=== PATIENT | male | born 1960 | race American Indian/Alaskan Native ===

== ENCOUNTER 2019-04-04 12:53 | Emergency (ER) | payer SELFPAY ==
[2019-04-04] MEDS ORDERED: IBUPROFEN 600 MG TAB PO ONE ×2 (14:49→14:51)
--- NOTE | 2019-04-04 14:49 | Event Note ---
ED Screening Note Date of service: 04/04/19 Time: 14:44 ED Screening Note: This is a 58 y.o. M. that presents to the ER with sore throat fever, chills, and cough for 1 week. Denies taking medication. States symptoms are worse. This initial assessment/diagnostic orders/clinical plan/treatment(s) is/are subject to change based on patients health status, clinical progression and re- assessment by fellow clinical providers in the ED. Further treatment and workup at subsequent clinical providers discretion. Patient/guardian urged not to elope from the ED as their condition may be serious if not clinically assessed and managed. Initial orders include: Rapid strep analgesics given
--- NOTE | 2019-04-04 15:35 | Emergency Department Report ---
- General Chief Complaint: Upper Respiratory Infection Stated Complaint: NECK SWELLING/COUGH/VIRUS Time Seen by Provider: 04/04/19 14:43 Source: patient Mode of arrival: Ambulatory Limitations: No Limitations - History of Present Illness Initial Comments: Patient is a 58-year-old male presents emergency room with complaints of a sore throat that began 5 days ago. He has associated subjective fever, right-sided lymph node swelling, discomfort with swallowing, dry cough. He denies any difficulty tolerating secretions. He denies any no sick contacts. He denies any nausea, vomiting, diarrhea, ear pain. He denies any past medical history or allergies to medications. He denies any recent antibiotics. - Related Data Previous Rx's Medication Instructions Recorded Last Taken Type Tetracycline [Sumycin] 500 mg PO ACHS #28 capsule 12/14/14 Unknown Rx Amoxicillin [Trimox] 500 mg PO BID 10 Days #40 capsule 04/04/19 Unknown Rx Allergies Allergy/AdvReac Type Severity Reaction Status Date / Time No Known Allergies Allergy Verified 04/04/19 12:55 ED Review of Systems ROS: Stated complaint: NECK SWELLING/COUGH/VIRUS Other details as noted in HPI Comment: All other systems reviewed and negative ED Past Medical Hx - Past Medical History Previous Medical History?: No - Surgical History Past Surgical History?: No - Social History Smoking Status: Never Smoker Substance Use Type: Alcohol - Medications Home Medications: Home Medications Medication Instructions Recorded Confirmed Last Taken Type Tetracycline [Sumycin] 500 mg PO ACHS #28 capsule 12/14/14 Unknown Rx Amoxicillin [Trimox] 500 mg PO BID 10 Days #40 capsule 04/04/19 Unknown Rx ED Physical Exam - General Limitations: No Limitations General appearance: alert, in no apparent distress - Head Head exam: Present: atraumatic, normocephalic - Eye Eye exam: Present: normal appearance - ENT ENT exam: Present: mucous membranes moist, other (erythema of the posterior oropharynx, no tonsillar hypertrophy or exduates, uvula is midline, no uvular edema, no uvular deviation) - Neck Neck exam: Present: lymphadenopathy (right anterior cervical LAD, no ttp) - Respiratory Respiratory exam: Present: normal lung sounds bilaterally. Absent: respiratory distress, wheezes, rales, rhonchi, stridor, chest wall tenderness, accessory muscle use, decreased breath sounds, prolonged expiratory - Cardiovascular Cardiovascular Exam: Present: regular rate, normal rhythm, normal heart sounds. Absent: systolic murmur, diastolic murmur, rubs, gallop - Neurological Exam Neurological exam: Present: alert, oriented X3 - Psychiatric Psychiatric exam: Present: normal affect, normal mood - Skin Skin exam: Present: warm, dry, intact ED Course Vital Signs 04/04/19 04/04/19 12:56 15:52 Temperature 100.3 F H 99.2 F Pulse Rate 102 H 88 Respiratory 18 18 Rate Blood Pressure 149/84 Blood Pressure 144/84 [Left] O2 Sat by Pulse 98 98 Oximetry ED Medical Decision Making - Lab Data Lab Results 04/04/19 Range/Units 14:46 Group A Strep Rapid Positive A (Negative) Vital Signs 04/04/19 04/04/19 12:56 15:52 Temperature 100.3 F H 99.2 F Pulse Rate 102 H 88 Respiratory 18 18 Rate Blood Pressure 149/84 Blood Pressure 144/84 [Left] O2 Sat by Pulse 98 98 Oximetry - Medical Decision Making Patient is a 58-year-old male presents emergency room with complaints of a sore throat that began 5 days ago. He has associated subjective fever, right-sided lymph node swelling, discomfort with swallowing, dry cough. He denies any difficulty tolerating secretions. He denies any no sick contacts. He denies any nausea, vomiting, diarrhea, ear pain. He denies any past medical history or allergies to medications. He denies any recent antibiotics. initial vitals with elevated temp and HR which improved upon repeat. on exam: erythema of the posterior oropharynx, no tonsillar hypertrophy or exduates, uvula is midline, no uvular edema, no uvular deviation, right anterior cervical LAD, no ttp, breath sounds are clear bilaterally. rapid strep is positive. pt given prescription for amoxicillin. advised pt to please take medication as prescribed. Increase your water intake. May use [id number] throat spray or do warm salt water gargles. May take Mucinex or Robitussin as needed for cough. throw away your toothbrush. do not drink after others or allow others to drink after you. Follow-up with a primary care doctor. Return to the emergency room for any new or worsening symptoms. - Differential Diagnosis strep throat, tonsillitis, peritonsillar abscess, lymphadenitis, URI, viral Critical care attestation.: If time is entered above; I have spent that time in minutes in the direct care of this critically ill patient, excluding procedure time. ED Disposition Clinical Impression: Strep throat Disposition: [id number] TO HOME OR SELFCARE Is pt being admited?: No Does the pt Need Aspirin: No Condition: Stable Instructions: Strep Throat (ED) Additional Instructions: Please take medication as prescribed. Increase your water intake. May use [id number] throat spray or do warm salt water gargles. May take Mucinex or Robitussin as needed for cough. throw away your toothbrush. do not drink after others or allow others to drink after you. Follow-up with a primary care doctor. Return to the emergency room for any new or worsening symptoms. Prescriptions: Amoxicillin [Trimox] 500 mg PO BID 10 Days #40 capsule Referrals: SHAY CATES MD [Staff Physician] - 3-5 Days [facility] [Outside] - 3-5 Days [facility] [Outside] - 3-5 Days Time of Disposition: 15:33 Print Language: [place]
[2019-04-04 16:10] VITALS: BP 144/84
== END 2019-04-04 15:52 | disposition home or self-care (01) ==
LOC: ED 12:53
DX: J02.0 Streptococcal pharyngitis (principal); Z79.2 Long term (current) use of antibiotics; Z79.899 Other long term (current) drug therapy
CPT/HCPCS: 87430